=== PATIENT | female | born 1990 | race Caucasian/White ===

== ENCOUNTER → 2021-07-12 09:57 | Outpatient (BNVA) | payer OTHER, SELFPAY | PROVIDERS: Family Provider Family Medicine; Visit Provider Obstetrics & Gynecology | DX: Z12.4 Encounter for screening for malignant neoplasm of cervix (principal) | CPT/HCPCS: 87624 ==

== ENCOUNTER 2023-07-12 23:03 | Emergency (ER) | payer OTHER, SELFPAY ==
[2023-07-12 23:13] VITALS: BP 152/88; PULSE 84; RESP 14; TEMP 37.3; O2SAT 98
--- NOTE | 2023-07-12 23:20 | ECG_ITS ---
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 Measurements Intervals [place] Rate: 84 P: 70 [place]: 130 QRS: 85 QRSD: 86 T: 13 QT: 354 QTc: 419 Interpretive Statements SINUS RHYTHM WITH SINUS ARRHYTHMIA NONSPECIFIC T-WAVE ABNORMALITY Compared to ECG 09/11/2016 19:30:20 Short [place] interval no longer present T-wave abnormality still present Electronically Signed On 07-13-2023 10:10:07 CDT by Mirna Torres M.D. [email or web address]
--- NOTE | 2023-07-12 23:21 | XRR_ITS ---
PROCEDURE INFORMATION: Exam: XR Chest Exam date and time: 07/12/2023 11:28 PM Age: 33 years old Clinical indication: Pain; Shortness of breath; Chest pressure; Patient HX: C/O cp with SOB. History of svt. ; Additional info: SOA TECHNIQUE: Imaging protocol: Radiologic exam of the chest. Views: 1 view. COMPARISON: CT chest abdpel w/*[id number] 09/11/2016 9:13 PM FINDINGS: Lungs: Unremarkable. No consolidation. Pleural spaces: Unremarkable. No pleural effusion. No pneumothorax. Heart/Mediastinum: Unremarkable. No cardiomegaly. Bones/joints: Unremarkable. XR/XR chest 1V [id number] IMPRESSION: No acute findings.
[2023-07-12 23:50] LABS: Basophils % 0.5 %; Eosinophils % 0.5 %; Hematocrit 39.3 % (36-47); Lymphocytes # 2.8 10^3/uL (0.8-4.8); Lymphocytes % 43.2 %; Mean Corpuscular HGB Conc 32.8 g/dL (30-55); Mean Corpuscular Hemoglobin 26.2 pg (27-33); Mean Corpuscular Volume 79.7 fl (85-98); Mean Platelet Volume 11.2 fL (7.4-10.4); Monocytes # 0.5 10^3/uL (0.2-0.9); Neutrophils # 3.13 10^3/uL (1.8-7.7); Neutrophils % 47.8 %; Nucleated Red Blood Cells % 0 %; Platelet Count 226 10^3/cmm (157-399); Red Blood Count 4.93 10^6/uL (3.85-5.65); Red Cell Distribution Width 13.9 % (12.1-15.1); White Blood Count 6.53 10^3/uL (3.29-11.43)
[2023-07-12 23:54] LABS: HCG Qualitative Urine. Negative (Negative)
--- NOTE | 2023-07-12 23:54 | ED_ITS ---
HPI - Chest Pain General: Chief Complaint: Chest Pain Stated Complaint: sob, cp Time Seen by Provider: 07/12/23 23:13 Source: patient and family Mode of arrival: ambulatory Limitations: no limitations History of Present Illness: Patient presents emergency department today for evaluation and treatment of chest pressure and shortness of breath. Patient states she noticed onset yesterday evening while she was trying to go to bed. She states she could not fall asleep. She does have issues with anxiety and states that she took 1/2 tablet of sertraline. Patient reports continued symptoms throughout the day though she would have moments where she did feel little better. However, tonight she took her BuSpar, thought she was doing better but as soon as she laid down, had return of chest pressure and significant shortness of breath. Patient states she feels shaky and weak. She is tearful in the room and states she is concerned it could be her heart or her lungs, etc. She also notes urinary frequency. Patient states she has a history of anemia. Chart review shows a history of SVT she notes she is followed by Dr Becerra in [place]. Review of Systems General: Reports: 10 or more systems reviewed and unremarkable except in HPI and below PFSH ED PFSH: Medical History History of supraventricular tachycardia diagnosed in 2008 -She was evaluated by a voucher clerk and was told no further intervention needed to be done. she has not followed up since then. Last time she had symptoms of SVT was in 2012. No pertinent past medical history Denies history of: diabetes, asthma, hypertension, seizures, DVT/PE, thyroid, kidney problems. PCP: ABIDA Russell Surgical History No history of previous surgery Family History Grandfather Heart disease maternal Stroke maternal Colon cancer maternal, age at diagnosis unknown Hyperlipidemia maternal Mother Hyperlipidemia Grandmother Stroke maternal Lymphoma maternal Denies family history of Cervical cancer Ovarian cancer DVT (deep venous thrombosis) Breast cancer Pulmonary embolism Uterine cancer Thyroid disease Social History Smoking and tobacco/nicotine status: former use of tobacco/nicotine Alcohol intake: unknown Substance/Drug Use: unknown Physical Exam Const: COMMON NORMALS: patient oriented x3, no limitations and alert OTHER: Patient is tearful, does appear anxious. HENMT: COMMON NORMALS: normocephalic, atraumatic, hearing grossly normal bilaterally, Normal external nose present, Normal nasal mucous membranes and turbinates present and moist oral mucous membranes HEAD & SCALP: normocephalic and atraumatic NOSE: Normal external nose present and Normal nasal mucous membranes and turbinates present Eye: COMMON NORMALS: Equal, round and reactive pupils present, EOMs intact bilaterally and conjunctivae normal CONJUNCTIVA: Yes conjunctivae normal PUPIL: Yes Equal, round and reactive pupils present Neck/C-Spine: COMMON NORMALS: Thyroid normal THYROID: Thyroid normal, not diffusely enlarged, not firm and no masses Lymph: LYMPHATIC: no lymphadenopathy noted Chest: COMMONS NORMALS: normal inspection of the chest (Evaluated during placement of EKG leads) Resp: COMMON NORMALS: normal respiratory effort, No retractions and No use of accessory muscles OTHER: 98% on room air. Respiration 14. Cardio: COMMON NORMALS: regular rate and regular rhythm RATE: regular rate RHYTHM: regular rhythm OTHER: Nontachycardic. GI: OTHER: Normoactive bowel sounds. Abdomen is soft, nontender. : COMMON NORMALS: Yes no CVA tenderness BLADDER/KIDNEY EXAM: Yes no CVA tenderness Back/Pelvis: COMMON NORMALS: no CVA tenderness, thoracic and lumbar spine normal to inspection and thoraco-lumbar ROM normal Extremity: COMMON NORMALS: normal to inspection, full ROM and no pedal edema Neuro: COMMON NORMALS: patient oriented x3 SENSORIUM/ORIENTATION: Yes alert Skin: COMMON NORMALS: no rashes or lesions noted and turgor normal GENERAL SKIN EXAM: no rashes or lesions noted and turgor normal Course Vital Signs: Vital signs: Vital Signs Temperature 99.2 F 07/12/23 23:13 Pulse Rate 70 07/13/23 00:24 Respiratory Rate 16 07/13/23 00:24 Blood Pressure 110/62 07/13/23 00:24 Pulse Oximetry 100 07/13/23 00:24 Oxygen Delivery Me thod Room Air 07/13/23 00:24 MDM - Chest Pain Medical Decision Making Patient had an extensive evaluation here in the emergency department. Patient had negative troponins and an EKG evaluated by Dr. Macedo without acute concerns. Patient shows no signs of acute anemia, infection, dehydration, electrolyte abnormality or urinary tract infection. Patient's D-dimer is normal. Chest x- ray was negative for any acute concerns. Patient did have findings of an elevated TSH. Patient originally told me she gets her thyroid checked regularly and had not had issues previously. I encouraged her to follow-up with her primary care next week for recheck of her thyroid level. Explained that if she continues to have elevated readings may require treatment to stabilize her thyroid readings. Even though patient has multiple things ruled out today, she still indicates she is very upset that she does not know what is causing her symptoms. At this time, I do think anxiety is playing a large role. Patient indicates concern for the medication she is taking and I encouraged her to let her primary care doctor know as it does often take several tries to find the best medication that works for each patient. Patient indicates that a long time ago she took a medication that started with an A and she thought it worked very well. She requested this medication from her doctor Hector Last but, they were not able to find record of it. I asked her if it was Ativan and she indicated she was not sure but she said it was a very small milligram dosing. I offered her Ativan here in the emergency department for acute management of anxiety. Patient was not sure at first but, then agreed as I explained it was not something she needed to take regularly and could be treated as a one-time only. Patient was given Ativan prior to her discharge. She is requesting the lab work and imaging performed here from the emergency department be sent to her voucher clerk office. We had her sign a medical record release form. Differential Diagnosis Unlikely acute massive pulmonary embolism, acute respiratory failure, acute myocardial infarction, cardiac arrest or sudden cardiac Lab Data 07/12/23 23:44 07/12/23 23:44 Radiology Impressions Chest X-Ray 07/12/23 23:21 IMPRESSION: No acute findings. Laboratory Results WBC 6.53 10^3/uL (3.29-11.43) 07/12/23 23:44 RBC 4.93 10^6/uL (3.85-5.65) 07/12/23 23:44 Hgb 12.90 g/dL (11.27-16.99) 07/12/23 23:44 Hct 39.3 % (36-47) 07/12/23 23:44 MCV 79.7 fl (85-98) L 07/12/23 23:44 MCH 26.2 pg (27-33) L 07/12/23 23:44 MCHC 32.8 g/dL (30-55) 07/12/23 23:44 RDW 13.9 % (12.1-15.1) 07/12/23 23:44 Plt Count 226 10^3/cmm (157-399) 07/12/23 23:44 MPV 11.2 fL (7.4-10.4) H 07/12/23 23:44 Neut % (Auto) 47.8 % 07/12/23 23:44 Lymph % (Auto) 43.2 % 07/12/23 23:44 Warrick % (Auto) 8.0 % 07/12/23 23:44 Eos % (Auto) 0.5 % 07/12/23 23:44 Baso % (Auto) 0.5 % 07/12/23 23:44 Neut # (Auto) 3.13 10^3/uL (1.8-7.7) 07/12/23 23:44 Lymph # (Auto) 2.8 10^3/uL (0.8-4.8) 07/12/23 23:44 Warrick # (Auto) 0.5 10^3/uL (0.2-0.9) 07/12/23 23:44 Eos # (Auto) 0.0 10^3/uL (0.0-0.8) 07/12/23 23:44 Baso # (Auto) 0.0 10^3/uL (0.0-0.1) 07/12/23 23:44 Nucleated RBC % (auto) 0 % 07/12/23: Nucleated RBCs # 0.0 /100WBC 07/12/23:44 D-Dimer <= 0.27 ug/mLFEU (0-0.59) 07/12/23 23:44 Sodium 137 mmol/L (136-145) 07/12/23 23:44 Potassium 4.1 mmol/L (3.5-5.1) 07/12/23 23:44 Chloride 103 mmol/L (98-107) 07/12/23 23:44 Carbon Dioxide 22 mmol/L (22-29) 07/12/23 23:44 Anion Gap 16.1 (5-19) 07/12/23 23:44 BUN 15 mg/dL (6-20) 07/12/23 23:44 Creatinine 0.6 mg/dL (0.5-0.9) 07/12/23 23:44 GFR Calculation 115.9 mL/min (90-130) 07/12/23 23:44 Glucose 103 mg/dL (65-115) 07/12/23 23:44 Calculated Osmolality 285 mOsm/kg (285-295) 07/12/23 23:44 Calcium 9.8 mg/dL (8.5-10.5) 07/12/23 23:44 Total Bilirubin 0.3 mg/dL (0.15-1.2) 07/12/23 23:44 AST 13 U/L (0-32) 07/12/23 23:44 ALT 14 U/L (0-33) 07/12/23 23:44 Alkaline Phosphatase 52 U/L (35-105) 07/12/23 23:44 Troponin T Baseline < 6 ng/L (0-10) 07/12/23 23:44 Total Protein 6.8 g/dL (6.6-8.7) 07/12/23 23:44 Albumin 4.4 g/dL (3.5-5.2) 07/12/23 23:44 Globulin 2.4 g/dL (1.3-4.6) 07/12/23 23:44 TSH 8.36 uIU/mL (0.27-4.20) H 07/12/23 23:44 HCG, Qual Negative (Negative) 07/12/23 23:49 Urine Color Light yellow (Yellow) 07/12/23 23:22 Urine Appearance Clear (CLEAR) 07/12/23 23:22 Urine pH 8 (5-7) H 07/12/23 23:22 Ur Specific [place] 1.010 (1.005-1.030) 07/12/23 23:22 Urine Protein Neg (Negative) 07/12/23 23:22 Urine Glucose (UA) Norm (Normal) 07/12/23 23:22 Urine Ketones Negative (Negative) 11/03/23 23:22 Urine Blood Neg (Negative) 07/12/23 23:22 Urine Nitrate Negative (Negative) 07/12/23 23:22 Urine Bilirubin Neg (Negative) 07/12/23 23:22 Prot Sulfosalicylic Acd Negative (Negative) 07/12/23 23:22 Urine Urobilinogen Neg mg/dL (Negative) 07/12/23 23:22 Ur Leukocyte Esterase Negative (Negative) 07/12/23 23:22 All radiology interpretation(s) finalized by discharge Discharge Plan Discharge Patient Disposition: Home Clinical Impression: Chest pressure, Shortness of breath, Elevated TSH Condition: Stable Prescriptions: No Action triamcinolone acetonide 0.1 % ointment 1 applic topical BID Qty: 80 0RF Rx Instructions: Apply to affected area no more than 2 weeks per month. Not for face norgestimate-ethinyl estradiol [Tri-Sprintec (28)] 0.18/0.215/0.25 mg-35 mcg (28) tablet 1 tab PO DAILY Qty: 28 8RF Discharge Orders: Discharge ED (Routine); Ordered 07/13/23 Ordered By: Suzy Smiley Referrals: Oxana Duarte FNP [Primary Care Provider] - Discharge Diet: Usual diet Discharge Activity: Increase activity as tolerated Patient Instructions: Hypothyroidism (ED) Activity Restrictions/Additional Instructions: In your lab work today we evaluated several things. You do not show signs of anemia or infection. Your kidney function is well within normal limits and you do not appear acutely dehydrated. Your electrolytes are normal. We checked cardiac markers to look for any heart abnormalities but everything was normal. Chest x-ray to evaluate heart and lungs is also normal. I even checked a lab to rule out a potential pulmonary embolism-this was also negative. Your EKG revealed no acute concerns. There was only one potential abnormality. Your thyroid hormone was found to be notably elevated. This could indicate a condition called hypothyroidism. Symptoms of this are often difficulty regulating temperature, hair loss, fatigue, joint aches and various other symptoms. It is recommended that you notify your primary care doctor on Saturday of this elevated TSH reading as they may wish to recheck and monitor this lab. You may require medication to regulate your thyroid in the future. Coding Level of Care Code ED Energy Conservation Engineer for Asa Spicer
[2023-07-13 00:08] LABS: Troponin(5th) Baseline < 6 ng/L (0-10)
[2023-07-13 00:17] LABS: D Dimer <= 0.27 ug/mLFEU (0-0.59)
[2023-07-13 00:17] LABS: Add Urine Microscopic? NO; Charge for UA Resulting for Rev
[2023-07-13] MEDS: sodium chloride 0.9% 500 ML IV (00:17)
[2023-07-13 00:24] VITALS: BP 110/62; PULSE 70; RESP 16; O2SAT 100
[2023-07-13 00:31] LABS: Alanine Aminotransferase 14 U/L (0-33); Albumin Level 4.4 g/dL (3.5-5.2); Alkaline Phosphatase 52 U/L (35-105); Anion Gap 16.1 (5-19); Aspartate Amino Transferase 13 U/L (0-32); Blood Urea Nitrogen 15 mg/dL (6-20); Calcium 9.8 mg/dL (8.5-10.5); Carbon Dioxide 22 mmol/L (22-29); Chloride 103 mmol/L (98-107); Globulin 2.4 g/dL (1.3-4.6); Glomerular Filtration Rate 115.9 mL/min (90-130); Glucose 103 mg/dL (65-115); Osmolality Calculated 285 mOsm/kg (285-295); Potassium 4.1 mmol/L (3.5-5.1); Sodium 137 mmol/L (136-145); Thyroid Stimulating Hormone 8.36 uIU/mL (0.27-4.20); Total Bilirubin 0.3 mg/dL (0.15-1.2); Total Protein 6.8 g/dL (6.6-8.7)
[2023-07-13 00:31] LABS: Bilirubin Urine Neg (Negative); Blood Urine Neg (Negative); Glucose Urine UA Norm (Normal); Ketones Urine Negative (Negative); Leukocyte Esterase Urine Negative (Negative); Nitrate Urine Negative (Negative); Protein Urine Neg (Negative); Sulfosalicylic Acid Urine Negative (Negative); Urine Appearance Clear (CLEAR); Urine Color Light yellow (Yellow); Urobilinogen Urine Neg (Negative); pH Urine 8 (5-7)
[2023-07-13 00:59] VITALS: BP 127/86; PULSE 78; RESP 20; O2SAT 99
[2023-07-13] MEDS: LORazepam 1 mg Tablet PO (01:11)
== END 2023-07-13 01:27 | disposition home or self-care (01) ==
PROVIDERS: Emergency Provider Physician Assistant; PCP Nurse Practitioner Family
DX: R07.89 Other chest pain (principal); R06.02 Shortness of breath; E03.9 Hypothyroidism, unspecified; Z87.891 Personal history of nicotine dependence
CPT/HCPCS: 71045; 80053; 81003; 81025; 84443; 84484; 85025; 85378; 93005; 96360; 99285; J7040